=== PATIENT | female | born 1960 | race Caucasian/White ===

== ENCOUNTER 2017-04-19 01:32 | Inpatient (IN) | payer OTHER ==
[~2017-04-19] VITALS: Ht 171.4 cm; Wt 74.4 kg
[~2017-04-19 01:32] MED LIST: COLACE100 M1 PO; IRON325 M3 PO; MULTIVITAMINS1 EAC9 PO; TRAMADOL HCL50 M1 PO
--- NOTE | 2017-04-19 10:03 | Operative Report ---
Operative/Inv Procedure Report Surgery Date: 04/19/17 Name of Procedure: Right total hip arthroplasty Pre-Operative Diagnosis: Right hip primary osteoarthritis Post-Operative Diagnosis: Same with final pathology pending Estimated Blood Loss: 50ml to 100ml Surgeon/Medical Billing Specialist: Alessandro RUSSELL,Tobias Lindo Anesthesia: general endotracheal tube Implants: Jakub secure fit size 7 femoral stem with a 132 neck angle Size 54 acetabulum, size 36+0 Biolox femoral head Drains: None Specimens: Femoral head and acetabular reamings Microbiology: Urine Complications: None Condition: Stable Operative Indication: Patient is a 56-year-old woman who has a history of increasing right hip pain. She's diagnosed with end-stage osteoarthritis the right hip. Conservative measures did not result in any significant long-term improvement. Her right hip symptoms interfere with normal activities of daily living. She wished to proceed with total hip arthroplasty after risks, benefits and expectations were discussed which included but were not limited to persistent hip pain, need for subsequent surgery, infection, DVT, injury to blood vessel or nerve, anesthesia risks, dislocation, instability. Operative/Procedure Note Note: Patient was brought to the operating room and transferred to the operating table. Once under appropriate anesthesia the patient was placed into a left lateral decubitus position with right side up. All bony prominences well- padded. The right lower extremity was prepped and draped in standard fashion. Preoperative IV antibiotic's were given prophylactically. A standard lateral incision was made for anticipated superior approach to the hip. The incision was taken down sharply to the underlying gluteus tres fascia. This was incised and the hip was internally rotated exposing the external rotators. The piriformis is identified and reflected posteriorly for later repair. The posterior capsule was exposed with retractors inferiorly and a retractor between the gluteus and minimus tendon and superior capsule. A rectangular portion of the central part of the capsule was incised and reflected posteriorly for later repair. Superior and inferior portions of the posterior capsule were excised. Hip was dislocated. End-stage degenerative changes and eburnated bone of the femoral head were noted. Femoral neck cut was then made based on intraoperative measurements, preoperative templating. The acetabulum was then visualized. There were significant degenerative changes which appear to be end-stage as well. Remnants of the degenerative labrum was excised circumferentially. Any remaining soft tissues were removed from the acetabular fossa. This was followed by reaming started was size 46 and advancing to a size 53 for anticipated insertion of a size 54 acetabulum. I use a size 52 trial to confirm circumferential reaming. Copious irrigation of the hip followed. The definitive size 54 acetabulum was impacted in place with excellent scratch fit. 2 screws were placed in the safe zone in standard fashion. After irrigation of the acetabular shell I impacted the definitive liner to accept a 36 femoral head. The liner was impacted in place and the locking mechanism was confirmed. A lap sponge was then placed to protect the acetabulum I preparing the proximal femur. The femur was internally rotated 90 and flexed 60. Retractors were placed and then I use a box osteotome to lateralize my insertion site and started to ream. I used hand reaming up to a size 6 and finished off the reaming the size 7 which match patient's anatomy. I use a 132 neck angle for the trialing since this match patient's anatomy as well as. I was satisfied with the 132 neck angle and the 36+0 femoral head after reducing this construct. I was satisfied with the stability. No evidence of posterior instability with simultaneous internal rotation adduction and flexion to greater than 90. No evidence of anterior instability with simultaneous extension and external rotation. The trial component was were then removed from the hip. Copious irrigation of the femoral canal followed. This was followed by insertion of the definitive size 7 secure fit femoral stem with the 132 neck angle. Excellent scratch fit. I then dried the trunnion and placed the definitive size 36+0 femoral head Biolox in place. Locking mechanism was confirmed.. Copious irrigation of the hip followed. I confirm stability once again. I then repaired the capsule and piriformis in standard fashion. Every level of closure was followed by copious irrigation. Fascia was closed with running 0 Vicryl suture since it was all in the muscular portion of the gluteus tres. Subcutaneous tissues closed in 2 layers due to the depth of the wound using 2-0 Vicryl and skin was closed with lizabeth. Progestins were applied and patient was awakened and taken to recovery room in good condition. No intraoperative complications. Blood loss 100 mL Discharge Disposition: PACU
--- NOTE | 2017-04-19 10:59 | RADIOLOGY REPORT ---
EXAMINATION: XR HIP, RIGHT CLINICAL INFORMATION: Status post right hip arthroplasty. COMPARISON: None available at time of dictation. TECHNIQUE: Single radiograph of the right hip. FINDINGS: The femoral and acetabular components of the right hip prostheses appear well seated. There is no fracture. No evidence of hardware failure. Expected soft tissue postoperative findings including subcutaneous air and mild swelling. Cutaneous skin lizabeth are seen. IMPRESSION: Right hip prosthesis appears to be in normal anatomic alignment. No evidence of hardware failure. Expected postoperative soft tissue findings.
[2017-04-19 11:45] VITALS: BP 122/80
[2017-04-19 13:45] VITALS: BP 106/60
--- NOTE | 2017-04-19 14:50 | Patient Discharge Instructions ---
Discharge Instructions General Discharge Information You were seen/treated for: Right hip pain related to unilateral primary osteoarthritis You had these procedures: Right total hip replacement Watch for these problems: Increasing pain despite the use of pain medication Increasing redness, warmth or swelling Drainage of any type from incision Inability to bear weight on operative leg Persistent nausea and vomiting Fever greater than 101.5 degrees Call Surgeon to remove: Angela Do not soak the wound: Yes No bath, but you may shower: Yes Other wound care: Please keep wound clean and dry. No ointments or lotions of any type on or near incision at any time. No exceptions. Your dressing will be changed by your nurse on the second day after your surgery. Daily dry dressing changes are recommended each day thereafter. Do not soak your wound in a bath at any time until otherwise indicated by your surgeon. You may shower, please dry wound immediately after shower with a clean towel. Diet Continue normal diet: Yes Recommended Diet: Regular Activity Full Activity/No Limits: No Activity Self Limited: Yes Pounds, do NOT lift more than: 10 Additional ACTIVITY Info: Do not flex hip greater than 90 degress Do not internally rotate right leg Do not cross legs Abduction pillow when laying down Posterior hip precautions remain in place for a minimum of 3 months post op unless otherwise indicated by Dr. Francois Acute Coronary Syndrome Inclusion Criteria At DC or during hospital stay patient has or had the following: ACS DIAGNOSIS No Discharge Core Measures Meds if any: Prescribed or Continued at Discharge Meds if any: NOT Prescribed or Continued at Discharge Congestive Heart Failure Inclusion Criteria At DC or during hospital stay patient has or had the following: CHF DIAGNOSIS No Discharge Core Measures Meds if any: Prescribed or Continued at Discharge Meds if any: NOT Prescribed or Continued at Discharge Cerebrovascular accident Inclusion Criteria At DC or during hospital stay patient has or had the following: CVA/TIA Diagnosis No Discharge Core Measures Meds if any: Prescribed or Continued at Discharge Meds if any: NOT Prescribed or Continued at Discharge Venous thromboembolism Inclusion Criteria VTE Diagnosis No VTE Type NONE VTE Confirmed by (Test) NONE Discharge Core Measures - Per Current guidelines, there needs to be overlap - treatment for the first 5 days of Warfarin therapy. - If discharged on Warfarin prior to 5 days of - overlap therapy, the patient will need to be - assessed for post discharge needs including - *Post discharge parental anticoagulation - *Warfarin and/or parental anticoagulation education - *Follow up date to check INR post discharge At least 5 days overlap therapy as Inpatient No Meds if any: Prescribed or Continued at Discharge Note: Overlap Therapy is Warfarin and Anticoagulant Meds if any: NOT Prescribed or Continued at Discharge
--- NOTE | 2017-04-19 14:51 | Admission Core Measures ---
Acute Coronary Syndrome (CM) ACS Core Measures Acute Coronary Syndrome Diagnosis No Congestive Heart Failure (NEW) CHF Core Measures Congestive Heart Failure Diagnosis No Cerebrovascular Accident (NEW) CVA Core Measures CVA/TIA Diagnosis No Venous Thromboembolism VTE Core Kobe (View Protocol) VTE Risk Factors Surgery No Mechanical VTE Prophylaxis d/t N/A MechProphylax Ordered No VTE Pharm Prophylaxis d/t NA PharmProphylax ordered Problem List As ranked by this Provider includes Assessment & Plan 1. Unilateral primary osteoarthritis, right hip HOME MEDS Home Med List Docusate Sodium (Colace) 100 MG CAPSULE 1 CAP PO DAILY STOOL SOFTENER ( Reported) Ferrous Sulfate (IRON) 325 MG (65 MG IRON) TABLET 1 TAB PO DAILY SUPPLEMENT ( Reported) Multiple Vitamin (Multivitamins) 1 EACH TABLET 1 TAB PO DAILY SUPPLEMENT ( Reported) Tramadol HCl 50 MG TABLET 1 TAB PO BID PRN PAIN (Reported)
--- NOTE | 2017-04-19 14:52 | Surgical Discharge Summary ---
Visit Information Visit Dates Admission Date: 04/19/17 Discharge Date: 04/21/17 History of Present Illness Chief Complaint: Right hip pain related to unilateral primary osteoarthritis Medical History Blood Transfusion Hx: No Neurological: NONE EENT: NONE Cardiovascular: NONE Respiratory: NONE Gastrointestinal: NONE Hepatic: NONE Renal: NONE Musculoskeletal: osteoarthritis Psychiatric: NONE Endocrine: NONE Blood Disorders: NONE Cancer(s): NONE SUPERINTENDENT MARINE/Reproductive: NONE History of MRSA: No History of VRE: No History of CDIFF: No Isolation History: Standard Influenza Vaccine: 11/15/16 Surgical History Pertinent Surgical History: GASTIC SLEEVE 2017 R KNEE Psychosocial History Where Do You Live? Home Who Do You Live With? Spouse Services at Home: None What is Your Primary Language? Mexican Review of Systems: See H&P Hospital Course Course Attending Physician: Alessandro RUSSELL,Guicho Primary Care Physician: Nguyễn Arreaga MD Hospital Course: Patient was admitted to the hospital for an elective total joint replacement. The procedure was tolerated well and patient was transferred to a general surgical floor. Diet was advanced and tolerated, and the patient voided spontaneously. The patient was evaluated and treated by physical therapy. At the time of hospital discharge, the vital signs were stable, neurovascular status was intact, and pain was controlled with the use of oral pain medications. Allergies: Coded Allergies: NO KNOWN ALLERGIES (NONE 04/19/17) Disposition Summary Disposition Principal Diagnosis: Right hip unilateral primary osteoarthritis Additional Diagnosis: None Discharge Disposition: home health services Discharge Instructions General Discharge Information Code Status: Full Code Patient's Diet: Regular, advance as tolerated Patient's Activity: WBAT, posterior hip preacautions in place Follow-Up Instructions/Appts: Follow up with Dr. Francois in 2 weeks from date of surgery Medications at Discharge Discharge Medications: Stop taking the following medications: Tramadol HCl (Tramadol HCl) 50 MG TABLET ORAL TWICE DAILY as needed for PAIN Continue taking these medications: Multiple Vitamin (Multivitamins) 1 EACH TABLET 1 Tablet ORAL DAILY Ferrous Sulfate (IRON) 325 MG (65 MG IRON) TABLET 1 Tablet ORAL DAILY Docusate Sodium (Colace) 100 MG CAPSULE 1 Capsule ORAL DAILY Start taking the following new medications: Apixaban (Eliquis) 2.5 MG TABLET 1 Tablet ORAL TWICE DAILY Qty = 80 No Refills Oxycodone HCl/Acetaminophen (Percocet 5-325 MG Tablet) 5 MG-325 MG TABLET 1-2 Tablet ORAL EVERY 4-6 HOURS as needed for PAIN Qty = 36 No Refills
[2017-04-19 16:02] VITALS: BP 130/70
--- NOTE | 2017-04-19 16:47 | PN- Orthopedic ---
Subjective Subjective: Patient resting comfortably, post op day 0, s/p R THR. Pain controlled. Complaining of acid reflux presently. Denies chest pain, shortness of breath and difficulty breathing. Denies nausea and vomitting. Has yet to ambulate. Has ramirez catheter in place. Objective Vital Signs and I&Os Vital Signs Date Time Temp Pulse Resp B/P B/P Pulse O2 O2 Flow FiO2 Mean Ox Delivery Rate 04/19 1602 98.0 56 18 130/70 98 Room Air 04/19 1345 97.0 60 20 106/60 98 Room Air 04/19 1145 97.8 64 20 122/80 96 Room Air Intake & Output 04/19 1600 04/19 0800 03/ 0000 / 1600 04/18 0800 04/18 0000 Intake Total 1100 Output Total 300 Balance 800 Intake, IV 300 Intake, Oral 800 Number 0 Bowel Movements Output, Urine 300 Patient 164 lb Weight Weight Reported by Patient Measurement Method Physical Exam: General: Alert and oriented x3, acute distress Cardiac: RRR, s1s2 Pulm: CTA bilaterally Abd: Soft, non-tender, non-distended Extremities: Moves all extremities, distal sensation grossly intact. Skin warm and well perfused. DP pulses palpabe bilaterally. Bilateral calves soft and non-tender. ALPS in place. Surgical site: Right hip, dressing dry and intact. Thigh compartment soft. Assessment/Plan Assessment/Plan This is a 56 year old female with a PMH significant for osteoarthritis. She is POD 0, s/p R THR, posterior approach. CC at present is acid reflux -IV protonix now, simethicon as needed for discomfort DVT ppx: Eliquis 2.5 bid to start tomorrow, ALPS for mechanical dvt ppx ABX ppx: Vancomycin x 1 additional dose Activity: OOB, wbat, posterior hip precautions Pain regimen: Percocet po, IV morphine for breakthrough pain Ramirez Catheter: to be removed tomorrow am IV fluids: To be dc'd tomorrow am Dressing: Keep clean and dry, first post op dressing change will take place POD 2. -Will discuss poc with Dr. Francois Core Measures Venous Thromboembolism VTE Risk Factors Surgery No Mechanical VTE Prophylaxis d/t N/A MechProphylax Ordered No VTE Pharm Prophylaxis d/t NA PharmProphylax ordered
[2017-04-19 18:30] VITALS: BP 120/72
[2017-04-19 21:45] VITALS: BP 110/60
[2017-04-20] VITALS (7 sets, daily range): BP systolic 102–150; BP diastolic 60–92
[2017-04-20 08:02] LABS: ABSOLUTE BASOPHIL COUNT 0 /CUMM (0.0-0.2); ABSOLUTE EOSINOPHIL COUNT 0.1 /CUMM (0.0-0.7); ABSOLUTE GRANULOCYTE CT 4.3 /CUMM (1.4-6.5); ABSOLUTE LYMPH COUNT 1.3 /CUMM (1.2-3.4); ABSOLUTE MONOCYTE COUNT 0.5 /CUMM (0.10-0.60); BASOPHIL % 0.4 % (0.0-2.0); EOSINOPHIL % 0.8 % (0-5); GRANULOCYTE % 68.7 % (42.2-75.2); HEMATOCRIT 29.2 % (37-47); MEAN CORPUSCULAR HGB 29.7 PG (27.0-31.0); MEAN CORPUSCULAR HGB CONC 34.5 G/DL (33.0-37.0); MEAN PLATELET VOLUME 8.9 FL (7.4-10.4); PLATELET COUNT 187 /CUMM (130-400); RBC DISTRIBUTION WIDTH 13.9 % (11.5-14.5); RED BLOOD CELL CT 3.39 /CUMM (4.20-5.40); WHITE BLOOD CELL COUNT 6.2 /CUMM (4.8-10.8)
--- NOTE | 2017-04-20 08:24 | PN- Orthopedic ---
See Addendum Subjective Subjective: No acute overnight events reported. Pain controlled. Pt slept well. Denies chest pain, shortness of breath and difficulty breathing. Denies nausea and vomitting, has been tolerating po. Reports resolution of acid reflux related discomfort last evening. Has yet to ambulate. Has yet to void. Objective Vital Signs and I&Os Vital Signs Date Time Temp Pulse Resp B/P B/P Pulse O2 O2 Flow FiO2 Mean Ox Delivery Rate 04/20 0612 98.0 78 20 150/92 98 Nasal 3.0L Cannula 04/20 0546 98.0 75 20 110/60 98 Room Air 03/ 0145 98.0 86 20 110/60 96 Room Air 03/ 2145 97.6 60 18 110/60 96 Room Air 03/ 1830 98.2 60 18 120/72 98 Room Air 03/ 1602 98.0 56 18 130/70 98 Room Air 03/ 1345 97.0 60 20 106/60 98 Room Air 03/ 1145 97.8 64 20 122/80 96 Room Air Intake & Output 04/20 1600 / 0800 03/06 0000 03/05 1600 03/05 0800 03/05 0000 Intake Total 8535 489 2519 Output Total 1800 500 300 Balance -480 -300 800 Intake, IV 600 300 Intake, Oral 720 200 800 Number 0 0 Bowel Movements Output, Urine 1800 500 300 Patient 164 lb Weight Weight Reported by Patient Measurement Method Physical Exam: General: Alert and oriented x3, no acute distress Cardiac: RRR, s1s2 Pulm: CTA bilaterally ABD: Non-tender, non-distended Extremities: Moves all extremities, distal sensation intact. Skin warm and well perfused. DP pulses palpable. Bilateral calves soft and non-tender. Surgical site: Right hip, dressing dry and intact. Thigh compartment soft. Assessment/Plan Assessment/Plan This is a 56 year old female, POD 1, s/p R THR. -Continue IV protonix for gerd -DC iv fluids -Diet as tolerated -Continue bowel regimen with colace and miralax -OOB today, wbat, posterior hip precautions in place -Continue po pain regimen -DVT ppx with eliquis to start this morning, continue alps Will discuss poc with Dr. Francois Core Measures Venous Thromboembolism VTE Risk Factors Surgery No Mechanical VTE Prophylaxis d/t N/A MechProphylax Ordered No VTE Pharm Prophylaxis d/t NA PharmProphylax ordered
[2017-04-21 00:26] VITALS: BP 110/60
[2017-04-21 06:16] VITALS: BP 132/60
--- NOTE | 2017-04-21 07:04 | PN- Orthopedic ---
See Addendum Subjective Subjective: Reports postop pain which is well controlled. Tolerating diet. Passing flatus, no BM. Ambulating with PT, no stairs at home. Hopeful to go home today. Objective Vital Signs and I&Os Vital Signs Date Time Temp Pulse Resp B/P B/P Pulse O2 O2 Flow FiO2 Mean Ox Delivery Rate 04/21 0616 98.2 70 20 132/60 96 Room Air 03/ 0026 98.0 60 20 110/60 96 Room Air / 2034 97.8 70 18 124/60 97 Room Air 03/06 1600 98.2 80 14 110/78 98 Room Air 03/ 1426 98.0 70 20 102/60 98 Room Air / 0800 98.0 78 14 150/92 97 Room Air Intake & Output 04/21 0800 03/ 0000 03/06 1600 / 0800 03/ 0000 03/05 1600 Intake Total 240 602 657 9152 200 1100 Output Total 879 452 2007 500 300 Balance -60 240 -40 -480 -300 800 Intake, IV 600 300 Intake, Oral 240 240 860 720 200 800 Number 0 0 Bowel Movements Output, Urine 990 924 4912 500 300 Patient 164 lb Weight Weight Reported by Patient Measurement Method Physical Exam: Gen - NAD Cardiac - S1S2, RRR Lungs - CTAB Ext - L hip dressing C/D/I, incision closed w/ lizabeth healing well with no signs of infection, redressde with gauze and tegaderm, compartment soft, nvi, no edema or calf tenderness Assessment/Plan Assessment/Plan 56 F POD 2 s/p R THR, recovering well, stable for discharge Reg diet Pain regimen Bowel regimen Eliquis bid for dvt ppx OOB PT, WBAT Posterior hip precautions in place Cont daily dry dressing changes D/c home with [facility] d/w Dr. Francois Core Measures Venous Thromboembolism VTE Risk Factors Surgery No Mechanical VTE Prophylaxis d/t N/A MechProphylax Ordered No VTE Pharm Prophylaxis d/t NA PharmProphylax ordered
[2017-04-21] MEDS ORDERED: PERCOCET 5-3251 EACH PO (07:05)
[2017-04-21] MEDS ORDERED: ELIQUIS2.5 M1 PO (07:05)
[2017-04-21] MEDS ORDERED: PEPCID40 M1 PO (08:41)
== END 2017-04-21 10:07 | disposition home health service (06) | DRG 470 ==
LOC: SDA 01:32 → ENRESERV 10:14 → ENTRNSPT 10:44 → EDTRNSPTSTS 11:23 → EDTRNSPT 11:23 → 2NB 11:37 → CMPTRNSPT 11:49 → ENPENDDIS 04-21 07:06 → ENTRNSPT 04-21 09:51 → EDTRNSPT 04-21 09:59 → EDTRNSPTSTS 04-21 09:59 → 2NB 04-21 10:07 → CMPTRNSPT 04-21 10:08
PROVIDERS: Physician Assistant Surgical
PROC: 0SR902A Replacement of Right Hip Joint with Metal on Polyethylene Synthetic Substitute, Uncemented, Open Approach (ICD-10-PCS; principal; 2017-04-19)
DX: M16.11 Unilateral primary osteoarthritis, right hip (principal); E53.8 Deficiency of other specified B group vitamins; I10 Essential (primary) hypertension; Z87.891 Personal history of nicotine dependence; E55.9 Vitamin D deficiency, unspecified
CPT/HCPCS: 36415; 36592; 73501; 82436; 87086; 88304; 97110-GO; 97116-GO; 97161-GP; 97530-GO; C9399; J0131; J1100; J2405; J3370; J7040; J7060